=== PATIENT | female | born 1955 | race Caucasian/White ===

== ENCOUNTER 2023-04-13 21:26 | Inpatient (IN) | payer MEDICARE, OTHER ==
[~2023-04-13] VITALS: Ht 170.2 cm; Wt 81.7 kg
[2023-04-13] MEDS ORDERED: MORPHINE SULFATE 4 MG/ML CPJ (NOT FOR IM USE) IV STA (22:38)
[2023-04-13] MEDS ORDERED: PANTOPRAZOLE SODIUM 40 MG/VIAL IV STA (22:38)
[2023-04-13] MEDS ORDERED: ONDANSETRON HCL 4MG/2ML INJ IV STA (22:38)
[2023-04-13] MEDS ORDERED: SODIUM CHLORIDE 0.9% 1,000 ML IV ONE (22:45)
[2023-04-13 22:52] LABS: BASOPHILS % 0.7 % (0.0-2.0); EOSINOPHILS % 3.1 % (0.0-5.0); HEMATOCRIT. 28.2 % (36.0-48.0); HEMOGLOBIN. 9.6 g/dL (12.0-16.0); LYMPHOCYTES % 24.2 % (20.0-50.0); MEAN CORPUSCULAR HEMOGLOBIN 32.9 pg (28.0-32.0); MEAN CORPUSCULAR VOLUME 96.6 fL (81.0-99.0); MEAN PLATELET VOLUME 9.2 fl (7.4-10.4); MONOCYTES % 8.9 % (2.0-8.0); NEUTROPHILS % 63.1 % (40.0-76.0); PLATELET 86 x1000/uL (130-400); RED BLOOD CELL COUNT 2.92 mill/uL (4.2-5.4); RED CELL DISTRIBUTION WIDTH 17.9 % (11.6-14.6)
[2023-04-13 23:00] LABS: CHLORIDE 108 mEq/L (98-107)
[2023-04-13 23:04] LABS: INR 1.4; PROTHROMBIN TIME 14.4 sec (9.6-11.0)
[2023-04-14] MEDS ORDERED: NA PHOS,M-B/NA PHOS,DI-BA ENEMA 118ML PR PRN (02:45)
[2023-04-14] MEDS ORDERED: IPRATROPIUM/ALBUTEROL 0.5-3(2.5)MG/3ML NEB HHN PRN (02:45)
[2023-04-14] MEDS ORDERED: MORPHINE SULFATE 2 MG/ML CPJ (NOT FOR IM USE) IV PRN (02:45)
[2023-04-14] MEDS ORDERED: MAGNESIUM/ALUMINUM HYDROXIDE/SIMETHICONE 30ML UDC PO PRN (02:45)
[2023-04-14] MEDS ORDERED: ACETAMINOPHEN 325MG TABLET PO PRN ×2 (02:45)
[2023-04-14] MEDS ORDERED: CLONIDINE 0.1MG TABLET PO PRN (02:45)
[2023-04-14] MEDS ORDERED: HYDROCODONE/ACETAMINOPHEN 5/325MG TABLET PO PRN (02:45)
[2023-04-14] MEDS ORDERED: ONDANSETRON HCL 4MG/2ML INJ IV PRN (02:45)
[2023-04-14 02:54] LABS: CLARITY URINE CLEAR (CLEAR); COLOR URINE DARK YELLOW (YELLOW); KETONES URINE NEGATIVE (NEGATIVE); LEUKOCYTE ESTERASE URINE NEGATIVE (NEGATIVE); NITRITE URINE NEGATIVE (NEGATIVE); OCCULT BLOOD URINE NEGATIVE (NEGATIVE); PROTEIN URINE NEGATIVE (NEGATIVE); SPECIFIC GRAVITY URINE 1.025 (1.005-1.030)
[2023-04-14 04:51] LABS: BASOPHILS % 0.2 % (0.0-2.0); EOSINOPHILS % 0.1 % (0.0-5.0); HEMATOCRIT. 30.4 % (36.0-48.0); HEMOGLOBIN. 10.4 g/dL (12.0-16.0); LYMPHOCYTES % 15.9 % (20.0-50.0); MEAN CORPUSCULAR HEMOGLOBIN 33.2 pg (28.0-32.0); MEAN CORPUSCULAR VOLUME 96.7 fL (81.0-99.0); MEAN PLATELET VOLUME 8.5 fl (7.4-10.4); MONOCYTES % 3.4 % (2.0-8.0); NEUTROPHILS % 80.4 % (40.0-76.0); PLATELET 75 x1000/uL (130-400); RED BLOOD CELL COUNT 3.14 mill/uL (4.2-5.4); RED CELL DISTRIBUTION WIDTH 17.5 % (11.6-14.6)
[2023-04-14 05:00] LABS: CHLORIDE 109 mEq/L (98-107)
[2023-04-14 05:12] LABS: PARTIAL THROMBOPLASTIN TIME 34.5 sec (23.4-31.0)
[2023-04-14 05:17] LABS: HDL CHOLESTEROL 26 mg/dL (40-59); LDL CHOLESTEROL 53 mg/dL (5-100); T4 FREE 1.17 ng/dL (0.76-1.46); TOTAL IRON BINDING CAPACITY 207 ug/dL (250-450)
[2023-04-14] MEDS ORDERED: IOHEXOL-300 100 ML BOTTLE ONE (05:48)
[2023-04-14 07:48] LABS: HAPTOGLOBIN 23 mg/dL (30-200)
[2023-04-14 07:58] LABS: BG CARBOXYHEMOGLOBIN 0.4 % (0.5-1.5); BG DEOXYHEMOGLOBIN 1.6 % (0.0-5.0); BG HCO3 ACT 17.8 mmol/L (22.0-26.0); BG METHEMOGLOBIN 0.2 % (0.0-1.5); BG OXYGEN SATURATION 98.4 % (92.0-98.5); BG OXYHEMOGLOBIN 97.8 % (94.0-97.0); BG PCO2 33.5 mmHg (35.0-45.0); BG PH 7.344 (7.350-7.450); BG PO2 124.5 mmHg (75.0-100.0); BG SAMPLE SITE RIGHT BRACHIAL; BG TOTAL HEMOGLOBIN 10.3 g/dL (12.0-18.0); BG VENT MODE NASAL CANNULA
[2023-04-14 09:00] VITALS: BP_SYST 113; BP_SYST 114; BP_DIAS 50; BP_DIAS 53; PULSE 53; PULSE 64; RESP 11; RESP 20; TEMP 96.4; TEMP 97.7
[2023-04-14 09:17] LABS: HEPATITIS B SURFACE AB < 3.1 mIU/mL
[2023-04-14] MEDS ORDERED: PANT40TA51 MT (10:00)
[2023-04-14] MEDS ORDERED: NADO20TA33 MT (10:00)
[2023-04-14] MEDS ORDERED: FURO40TA5 MT (10:00)
[2023-04-14] MEDS ORDERED: SPIR50TA5 MT (10:00)
[2023-04-14] MEDS ORDERED: FOLI-43 MT (10:00)
[2023-04-14] MEDS ORDERED: *PATIENT'S OWN MEDICATION STORAGE XX SCH (10:45)
[2023-04-14] MEDS: PANTOPRAZOLE SODIUM 40 MG/VIAL IV SCH (11:50)
[2023-04-14 12:00] VITALS: BP 113/50; PULSE 52; RESP 20; TEMP 96.4
[2023-04-14 14:29] LABS: *AMPHETAMINES SCREEN URINE NEGATIVE (NEGATIVE); *BARBITURATES SCREEN URINE NEGATIVE (NEGATIVE); *BENZODIAZEPINES SCREEN URINE NEGATIVE (NEGATIVE); *COCAINE SCREEN URINE NEGATIVE (NEGATIVE); CANNABINOID URINE SCREEN NEGATIVE (NEGATIVE); METHADONE URINE SCREEN NEGATIVE (NEGATIVE); OPIATES URINE SCREEN PRESUMTIVE POSITIVE (NEGATIVE); PHENCYCLIDINE URINE SCREEN NEGATIVE (NEGATIVE)
[2023-04-14 16:00] VITALS: BP 102/53; PULSE 60; RESP 20; TEMP 97.7
[2023-04-14] MEDS ORDERED: NALOXONE HCL 0.4MG/ML VIAL IV PRN (17:30)
[2023-04-14] MEDS: PHYTONADIONE 10MG/ML AMP SUBCUT SCH (18:14)
[2023-04-14 20:00] VITALS: BP 105/49; PULSE 59; RESP 17; TEMP 97.5
[2023-04-14] MEDS: CARVEDILOL 3.125 MG TABLET PO SCH (20:05)
[2023-04-15] VITALS: BP 101/49; PULSE 63; RESP 18; TEMP 97.7
[2023-04-15 04:00] VITALS: BP 109/49; PULSE 75; RESP 20; TEMP 97.8
[2023-04-15 08:00] VITALS: PULSE 66; RESP 20; TEMP 97.9
[2023-04-15 08:29] LABS: HEMATOCRIT 26.1 % (36.0-48.0); HEMOGLOBIN 9.2 g/dL (12.0-16.0); MEAN CORPUSCULAR HEMOGLOBIN 33.9 pg (28.0-32.0); PLATELET 81 x1000/uL (130-400); RED BLOOD CELL COUNT 2.72 mill/uL (4.2-5.4); RED CELL DISTRIBUTION WIDTH 18.2 % (11.6-14.6)
[2023-04-15 08:32] LABS: CHLORIDE 111 mEq/L (98-107)
[2023-04-15] MEDS: CARVEDILOL 3.125 MG TABLET PO SCH ×2 (11:48→21:32)
[2023-04-15] MEDS: PHYTONADIONE 10MG/ML AMP SUBCUT SCH (11:52)
[2023-04-15] MEDS: PANTOPRAZOLE SODIUM 40 MG/VIAL IV SCH (11:53)
[2023-04-15 12:00] VITALS: PULSE 71; RESP 18; TEMP 98.8
[2023-04-15] MEDS: LACTULOSE 20G/30ML UDC PO SCH ×2 (15:53→21:32)
[2023-04-15 16:00] VITALS: PULSE 64; RESP 18; TEMP 97.9
[2023-04-15 20:00] VITALS: BP 120/46; PULSE 63; RESP 18; TEMP 97.8
[2023-04-15] MEDS: RIFAXIMIN 550 MG TABLET PO SCH (21:32)
[2023-04-16] VITALS: PULSE 80; RESP 20; TEMP 97.9
[2023-04-16 04:00] VITALS: BP 109/63; PULSE 66; RESP 20; TEMP 97.7
[2023-04-16] MEDS: LACTULOSE 20G/30ML UDC PO SCH (06:17)
[2023-04-16 08:00] VITALS: BP 103/43; PULSE 63; RESP 18; TEMP 97.5
[2023-04-16 08:35] LABS: INR 1.5; PROTHROMBIN TIME 15.6 sec (9.6-11.0)
[2023-04-16 08:45] LABS: CHLORIDE 115 mEq/L (98-107)
[2023-04-16 08:46] LABS: BASOPHILS % 0.8 % (0.0-2.0); EOSINOPHILS % 4.4 % (0.0-5.0); HEMATOCRIT. 24.2 % (36.0-48.0); HEMOGLOBIN. 8.4 g/dL (12.0-16.0); LYMPHOCYTES % 35.5 % (20.0-50.0); MEAN CORPUSCULAR HEMOGLOBIN 33.3 pg (28.0-32.0); MEAN CORPUSCULAR VOLUME 96.4 fL (81.0-99.0); MEAN PLATELET VOLUME 9.3 fl (7.4-10.4); MONOCYTES % 9.9 % (2.0-8.0); NEUTROPHILS % 49.4 % (40.0-76.0); PLATELET 60 x1000/uL (130-400); RED BLOOD CELL COUNT 2.51 mill/uL (4.2-5.4); RED CELL DISTRIBUTION WIDTH 18.5 % (11.6-14.6)
[2023-04-16] MEDS: CARVEDILOL 3.125 MG TABLET PO SCH (10:55)
[2023-04-16] MEDS: PHYTONADIONE 10MG/ML AMP SUBCUT SCH (10:55)
[2023-04-16] MEDS: RIFAXIMIN 550 MG TABLET PO SCH (10:55)
[2023-04-16] MEDS: PANTOPRAZOLE SODIUM 40 MG/VIAL IV SCH (10:55)
[2023-04-16] MEDS ORDERED: COR3 PO (11:56)
[2023-04-16 12:22] VITALS: BP 103/43; PULSE 63; TEMP 97.5; O2SAT 97
== END 2023-04-16 14:31 | disposition home or self-care (01) | DRG 444 ==
LOC: ER 22:14 → 6EST 04-14 03:17 → EDBEDREQSVC 04-14 03:21 → EDBEDREQTM 04-14 03:21 → EDBEDREQ 04-14 03:21 → ER 04-14 08:49
PROVIDERS: ADMIT Hospitalist; ATTEND Hospitalist
DX: K80.60 Calculus of gallbladder and bile duct with cholecystitis, unspecified, without obstruction (principal); E43 Unspecified severe protein-calorie malnutrition; E87.1 Hypo-osmolality and hyponatremia; R18.8 Other ascites; K76.6 Portal hypertension; D68.9 Coagulation defect, unspecified; D64.9 Anemia, unspecified; K74.60 Unspecified cirrhosis of liver; D69.6 Thrombocytopenia, unspecified; R74.01 Elevation of levels of liver transaminase levels; I10 Essential (primary) hypertension; I86.4 Gastric varices; F10.10 Alcohol abuse, uncomplicated; Z68.29 Body mass index [BMI] 29.0-29.9, adult; Z79.899 Other long term (current) drug therapy
CPT/HCPCS: 36415; 36600; 71045; 74177; 74181; 76700; 80048; 80053; 80061; 80076; 80305; 81003; 82140; 82248; 82375; 82570; 82728; 82805; 82962; 83010; 83036; 83540; 83550; 83605; 83615; 83880; 83930; 83935; 84145; 84300; 84439; 84443; 85025; 85027; 85044; 85384; 86705; 86706; 86803; 93306; 97162; 99291; C9113; J2270; J2405; J3430; J7030; Q9967

== ENCOUNTER 2023-04-27 10:44 | Inpatient (IN) | payer MEDICARE, OTHER ==
[~2023-04-27] VITALS: Ht 154.9 cm; Wt 84.0 kg
[~2023-04-27 10:44] MED LIST: COR3 PO; FOLI-43 MT; FURO40TA5 MT; PANT40TA51 MT; SPIR50TA5 MT
[2023-04-27 11:04] LABS: BASOPHILS % 0.9 % (0.0-2.0); HEMATOCRIT. 31.3 % (36.0-48.0); HEMOGLOBIN. 10.7 g/dL (12.0-16.0); LYMPHOCYTES % 30.9 % (20.0-50.0); MEAN CORPUSCULAR HEMOGLOBIN 33.5 pg (28.0-32.0); MEAN CORPUSCULAR HGB CONC 34.1 g/dL (31.0-37.0); MEAN CORPUSCULAR VOLUME 98.1 fL (81.0-99.0); MONOCYTES % 7.7 % (2.0-8.0); NEUTROPHILS % 57.5 % (40.0-76.0); RED CELL DISTRIBUTION WIDTH 20.2 % (11.6-14.6); WHITE BLOOD COUNT 4.1 x1000/uL (4.5-11.0)
[2023-04-27 11:10] LABS: CHLORIDE 114 mEq/L (98-107); INDEX HEMOLYSI 1 (1-3); INDEX ICTERIC 3 (1-4); INDEX LIPEMIC 1 (1-3); SODIUM 141 mEq/L (136-145)
[2023-04-27 11:11] LABS: INDEX HEMOLYSI 1 (1-3)
[2023-04-27 11:19] LABS: ALANINE AMINOTRANSFERASE 31 IU/L (13-61); ALBUMIN 2.5 g/dL (3.4-5.0); ASPARTATE AMINOTRANSFERASE 59 IU/L (15-37); BILIRUBIN TOTAL 4.7 mg/dL (0.1-1.0); CALCIUM 8.8 mg/dL (8.5-10.1); CARBON DIOXIDE 20 mEq/L (21-32); CREATININE 1.3 mg/dL (0.6-1.3); ETHANOL BLOOD < 10 mg/dL (-10); GLUCOSE 118 mg/dL (70-105); PROTEIN TOTAL 7.6 g/dL (6.0-8.3); TROPONIN I HIGH SENSITIVITY 18 ng/L (<54); UREA NITROGEN BLOOD 23 mg/dL (7-21)
[2023-04-27 11:31] LABS: DIFFERENTIAL COMMENT 1
[2023-04-27 12:24] LABS: AMMONIA 149 uMol/L (<32)
[2023-04-27] MEDS ORDERED: LACTULOSE 20G/30ML UDC PO ONE (12:30)
[2023-04-27 12:32] LABS: PLATELET 93 x1000/uL (130-400)
[2023-04-27 13:18] LABS: CLARITY URINE CLEAR (CLEAR); COLOR URINE YELLOW (YELLOW); GLUCOSE URINE NEGATIVE (NEGATIVE); KETONES URINE NEGATIVE (NEGATIVE); LEUKOCYTE ESTERASE URINE 1+ (NEGATIVE); NITRITE URINE NEGATIVE (NEGATIVE); OCCULT BLOOD URINE NEGATIVE (NEGATIVE); PROTEIN URINE NEGATIVE (NEGATIVE); SPECIFIC GRAVITY URINE 1.009 (1.005-1.030)
[2023-04-27 14:25] LABS: *AMPHETAMINES SCREEN URINE NEGATIVE (NEGATIVE); *BARBITURATES SCREEN URINE NEGATIVE (NEGATIVE); *BENZODIAZEPINES SCREEN URINE NEGATIVE (NEGATIVE); *COCAINE SCREEN URINE NEGATIVE (NEGATIVE); CANNABINOID URINE SCREEN NEGATIVE (NEGATIVE); ECSTASY MDMA SCREEN URINE NEGATIVE (NEGATIVE); METHADONE URINE SCREEN NEGATIVE (NEGATIVE); OPIATES URINE SCREEN NEGATIVE (NEGATIVE); PHENCYCLIDINE URINE SCREEN NEGATIVE (NEGATIVE)
[2023-04-27 14:37] VITALS: BP 146/71; PULSE 80; RESP 20; TEMP 98
[2023-04-27 14:49] VITALS: BP 146/71; PULSE 80; RESP 20; TEMP 98
[2023-04-27] MEDS ORDERED: LACT10SO7 PO (14:56)
[2023-04-27] MEDS ORDERED: NITROGLYCERIN 0.4MG TABLET SL SL PRN (15:15)
[2023-04-27] MEDS ORDERED: KETOROLAC 15MG/ML VIAL IV PRN (15:15)
[2023-04-27] MEDS ORDERED: HALOPERIDOL LACTATE 5MG/ML VIAL IM NR (15:30)
[2023-04-27] MEDS ORDERED: GUAIFENESIN 200MG/10ML SUGAR FREE UDC PO PRN (15:30)
[2023-04-27] MEDS ORDERED: ONDANSETRON HCL 4MG/2ML INJ IV PRN (15:30)
[2023-04-27] MEDS ORDERED: IPRATROPIUM/ALBUTEROL 0.5-3(2.5)MG/3ML NEB NEB PRN (15:30)
[2023-04-27] MEDS ORDERED: ACETAMINOPHEN 325MG TABLET PO PRN (15:30)
[2023-04-27] MEDS ORDERED: CLONIDINE 0.1MG TABLET PO PRN (15:30)
[2023-04-27] MEDS ORDERED: MAGNESIUM/ALUMINUM HYDROXIDE/SIMETHICONE 30ML UDC PO PRN (15:30)
[2023-04-27] MEDS ORDERED: DOCUSATE SODIUM 100MG CAPSULE PO PRN (15:30)
[2023-04-27 15:31] LABS: BACTERIA URINE NONE SEEN; RBC URINE NONE SEEN /hpf (0-2); SQUAMOUS EPITHELIAL CELL URINE FEW /lpf (RARE/1+); WBC URINE 0-2 /hpf (0-2); YEAST URINE NONE SEEN
[2023-04-27] MEDS: PANTOPRAZOLE SODIUM 40 MG/VIAL IV SCH (16:09)
[2023-04-27] MEDS: LACTULOSE 20G/30ML UDC PO SCH ×3 (16:09→23:51)
[2023-04-27 16:19] VITALS: BP 132/78; PULSE 82; RESP 15; TEMP 98.3
[2023-04-27] MEDS: SODIUM CHLORIDE 0.9% 1,000 ML IV SCH (16:29)
[2023-04-27] MEDS ORDERED: ENOXAPARIN 30MG/0.3ML SYR SUBCUT SCH (16:30)
[2023-04-27 19:28] LABS: INDEX HEMOLYSI 2 (1-3)
[2023-04-27 19:37] LABS: T4 FREE 1.46 ng/dL (0.76-1.46); THYROID STIMULATING HORMONE 2.5 uIU/mL (0.36-3.74)
[2023-04-27 20:00] VITALS: BP 111/46; PULSE 64; RESP 17; TEMP 96.9
[2023-04-27 20:01] LABS: FOLIC ACID (FOLATE) SERUM >20 ng/mL ng/mL (>5.38); VITAMIN B12 SERUM 1945 pg/mL (211-911)
[2023-04-27 20:17] LABS: SODIUM URINE RANDOM 75 mEq/L
[2023-04-27 20:45] LABS: LACTIC ACID 2.5 mmol/L (0.4-2.0)
[2023-04-27] MEDS: RIFAXIMIN 550 MG TABLET PO SCH (20:48)
[2023-04-27 21:20] LABS: OSMOLALITY URINE 461 mOsm/kg (500-850)
[2023-04-28] VITALS: BP 124/59; PULSE 74; RESP 19; TEMP 97.8
[2023-04-28] MEDS: ACETAMINOPHEN 325MG TABLET PO PRN (00:30)
[2023-04-28] MEDS: SODIUM CHLORIDE 0.9% 1,000 ML IV SCH ×3 (01:47→21:22)
[2023-04-28] MEDS: LACTULOSE 20G/30ML UDC PO SCH ×5 (03:52→20:30)
[2023-04-28 04:00] VITALS: BP 118/62; PULSE 71; RESP 15; TEMP 98
[2023-04-28 06:05] LABS: BASOPHILS % 0.6 % (0.0-2.0); HEMATOCRIT. 28.6 % (36.0-48.0); HEMOGLOBIN. 9.7 g/dL (12.0-16.0); LYMPHOCYTES % 30.7 % (20.0-50.0); MEAN CORPUSCULAR HEMOGLOBIN 33.8 pg (28.0-32.0); MEAN CORPUSCULAR VOLUME 99.4 fL (81.0-99.0); MEAN PLATELET VOLUME 9.7 fl (7.4-10.4); MONOCYTES % 10.8 % (2.0-8.0); NEUTROPHILS % 54.9 % (40.0-76.0); PLATELET 81 x1000/uL (130-400); RED BLOOD CELL COUNT 2.88 mill/uL (4.2-5.4); RED CELL DISTRIBUTION WIDTH 21.5 % (11.6-14.6); WHITE BLOOD COUNT 4.8 x1000/uL (4.5-11.0)
[2023-04-28 07:01] LABS: CHLORIDE 119 mEq/L (98-107); INDEX HEMOLYSI 1 (1-3); INDEX ICTERIC 3 (1-4); INDEX LIPEMIC 1 (1-3); POTASSIUM 4.1 mEq/L (3.5-5.1); SODIUM 146 mEq/L (136-145)
[2023-04-28 07:11] LABS: ALANINE AMINOTRANSFERASE 28 IU/L (13-61); ALBUMIN 2.2 g/dL (3.4-5.0); ASPARTATE AMINOTRANSFERASE 54 IU/L (15-37); BILIRUBIN TOTAL 5.3 mg/dL (0.1-1.0); CALCIUM 9.3 mg/dL (8.5-10.1); CARBON DIOXIDE 20 mEq/L (21-32); CREATININE 1.1 mg/dL (0.6-1.3); GLUCOSE 116 mg/dL (70-105); PHOSPHORUS 2.9 mg/dL (2.5-4.9); PROTEIN TOTAL 6.6 g/dL (6.0-8.3); UREA NITROGEN BLOOD 19 mg/dL (7-21)
[2023-04-28 08:00] VITALS: BP 97/45; PULSE 71; RESP 14; TEMP 97.1
[2023-04-28] MEDS ORDERED: PANTOPRAZOLE SODIUM 40 MG/VIAL IV SCH (09:00)
[2023-04-28] MEDS: PANTOPRAZOLE SODIUM 40 MG/VIAL IV SCH (09:53)
[2023-04-28] MEDS: RIFAXIMIN 550 MG TABLET PO SCH ×2 (09:53→20:30)
[2023-04-28] MEDS: AMLODIPINE 5MG TABLET PO SCH (09:54)
[2023-04-28 12:00] VITALS: BP 95/55; PULSE 77; RESP 17; TEMP 98
[2023-04-28 16:00] VITALS: BP 122/53; PULSE 72; RESP 15; TEMP 98
[2023-04-28 20:00] VITALS: BP 128/49; PULSE 72; RESP 17; TEMP 98.4
[2023-04-28 22:01] LABS: AMMONIA 45 uMol/L (<32)
[2023-04-29] VITALS: BP 124/63; PULSE 82; RESP 14; TEMP 99.1
[2023-04-29] MEDS: LACTULOSE 20G/30ML UDC PO SCH ×5 (01:22→20:40)
[2023-04-29 04:00] VITALS: BP 116/59; PULSE 74; RESP 15; TEMP 98.2
[2023-04-29 08:00] VITALS: BP 113/64; PULSE 76; RESP 18; TEMP 97.4
[2023-04-29] MEDS: AMLODIPINE 5MG TABLET PO SCH (08:49)
[2023-04-29] MEDS: PANTOPRAZOLE SODIUM 40 MG/VIAL IV SCH (08:50)
[2023-04-29] MEDS: SODIUM CHLORIDE 0.9% 1,000 ML IV SCH (08:50)
[2023-04-29] MEDS: RIFAXIMIN 550 MG TABLET PO SCH ×2 (08:50→20:40)
[2023-04-29 09:58] LABS: AMMONIA 55 uMol/L (<32)
[2023-04-29 10:00] LABS: HEMATOCRIT 31.3 % (36.0-48.0); MEAN CORPUSCULAR HEMOGLOBIN 33.1 pg (28.0-32.0); MEAN CORPUSCULAR HGB CONC 32.1 g/dL (31.0-37.0); MEAN CORPUSCULAR VOLUME 103.2 fL (81.0-99.0); PLATELET 78 x1000/uL (130-400); RED BLOOD CELL COUNT 3.03 mill/uL (4.2-5.4); WHITE BLOOD COUNT 5.5 x1000/uL (4.5-11.0)
[2023-04-29 10:03] LABS: CHLORIDE 114 mEq/L (98-107); INDEX HEMOLYSI 1 (1-3); INDEX ICTERIC 3 (1-4); INDEX LIPEMIC 1 (1-3); POTASSIUM 4.4 mEq/L (3.5-5.1); SODIUM 138 mEq/L (136-145)
[2023-04-29 10:04] LABS: CALCIUM 9.1 mg/dL (8.5-10.1)
[2023-04-29 10:09] LABS: CARBON DIOXIDE 16 mEq/L (21-32); CREATININE 0.8 mg/dL (0.6-1.3); GLUCOSE 173 mg/dL (70-105); PHOSPHORUS 2.5 mg/dL (2.5-4.9); UREA NITROGEN BLOOD 20 mg/dL (7-21)
[2023-04-29 12:00] VITALS: BP 110/45; PULSE 79; RESP 20; TEMP 98
[2023-04-29 16:00] VITALS: BP 110/60; PULSE 77; RESP 20; TEMP 97.8
[2023-04-29 20:00] VITALS: BP 103/47; PULSE 77; RESP 18; TEMP 99.5
[2023-04-30] VITALS: BP 103/58; PULSE 84; RESP 16; TEMP 99
[2023-04-30] MEDS: LACTULOSE 20G/30ML UDC PO SCH ×5 (03:30→20:49)
[2023-04-30 04:00] VITALS: BP 101/53; PULSE 67; RESP 16; TEMP 97.9
[2023-04-30 06:17] LABS: HEMATOCRIT 27.1 % (36.0-48.0); HEMOGLOBIN 9.2 g/dL (12.0-16.0); MEAN CORPUSCULAR HEMOGLOBIN 33.5 pg (28.0-32.0); MEAN CORPUSCULAR HGB CONC 33.7 g/dL (31.0-37.0); MEAN CORPUSCULAR VOLUME 99.3 fL (81.0-99.0); PLATELET 64 x1000/uL (130-400); RED BLOOD CELL COUNT 2.73 mill/uL (4.2-5.4); RED CELL DISTRIBUTION WIDTH 20.8 % (11.6-14.6); WHITE BLOOD COUNT 5.6 x1000/uL (4.5-11.0)
[2023-04-30 06:18] LABS: ALANINE AMINOTRANSFERASE 39 IU/L (13-61); ALBUMIN 2.1 g/dL (3.4-5.0); ASPARTATE AMINOTRANSFERASE 85 IU/L (15-37); BILIRUBIN TOTAL 4.2 mg/dL (0.1-1.0); CALCIUM 8.4 mg/dL (8.5-10.1); CARBON DIOXIDE 17 mEq/L (21-32); CHLORIDE 114 mEq/L (98-107); CREATININE 0.8 mg/dL (0.6-1.3); GLUCOSE 95 mg/dL (70-105); INDEX HEMOLYSI 1 (1-3); INDEX ICTERIC 2 (1-4); INDEX LIPEMIC 1 (1-3); IRON 177 ug/dL (50-175); PHOSPHORUS 2.7 mg/dL (2.5-4.9); POTASSIUM 4.7 mEq/L (3.5-5.1); PROTEIN TOTAL 6.4 g/dL (6.0-8.3); SODIUM 139 mEq/L (136-145); TOTAL IRON BINDING CAPACITY 225 ug/dL (250-450); UREA NITROGEN BLOOD 16 mg/dL (7-21)
[2023-04-30 06:39] LABS: AMMONIA 71 uMol/L (<32)
[2023-04-30 06:53] LABS: INDEX HEMOLYSI 1 (1-3)
[2023-04-30] MEDS ORDERED: SODIUM PHOS,M-BASIC-D-BASIC 20 MM in DEXT 5% WATER 243.3333 ML IV ONE (07:45)
[2023-04-30 08:00] VITALS: BP 107/67; PULSE 76; RESP 18; TEMP 98.1
[2023-04-30] MEDS: RIFAXIMIN 550 MG TABLET PO SCH ×2 (08:51→20:49)
[2023-04-30] MEDS: AMLODIPINE 5MG TABLET PO SCH (08:52)
[2023-04-30] MEDS: PANTOPRAZOLE SODIUM 40 MG/VIAL IV SCH (08:52)
[2023-04-30] MEDS ORDERED: MAGNESIUM 1 G PREMIX 100 ML IV NR (09:00)
[2023-04-30 12:00] VITALS: BP 90/45; PULSE 66; RESP 17; TEMP 98.2
[2023-04-30 16:00] VITALS: BP 95/52; PULSE 63; RESP 18; TEMP 98.3
[2023-04-30 20:00] VITALS: BP 96/49; PULSE 65; RESP 19; TEMP 97.8
[2023-05-01] VITALS: BP 108/47; PULSE 64; RESP 15; TEMP 98.5
[2023-05-01] MEDS: LACTULOSE 20G/30ML UDC PO SCH ×5 (00:35→16:00)
[2023-05-01 04:00] VITALS: BP 99/56; PULSE 69; RESP 15; TEMP 98.4
[2023-05-01] MEDS: ACETAMINOPHEN 325MG TABLET PO PRN (04:36)
[2023-05-01 08:00] VITALS: BP 108/56; PULSE 74; RESP 16; TEMP 97.6
[2023-05-01] MEDS: RIFAXIMIN 550 MG TABLET PO SCH (09:29)
[2023-05-01] MEDS: PANTOPRAZOLE SODIUM 40 MG/VIAL IV SCH (09:29)
[2023-05-01] MEDS: AMLODIPINE 5MG TABLET PO SCH (09:29)
[2023-05-01] MEDS ORDERED: LACT10SO7 PO (10:12)
[2023-05-01] MEDS ORDERED: RIFA550T PO (10:12)
[2023-05-01 12:00] VITALS: BP 128/62; PULSE 67; RESP 20; TEMP 97.4
[2023-05-01 15:56] VITALS: BP 103/67; PULSE 64; TEMP 97.4; O2SAT 96
[2023-05-01 16:00] VITALS: BP 103/47; PULSE 67; RESP 17; TEMP 97.4
== END 2023-05-01 16:50 | disposition home health service (06) | DRG 441 ==
LOC: ER 10:54 → 3WST 12:38 → EDBEDREQTM 12:40 → EDBEDREQ 12:40
PROVIDERS: ADMIT Internal Medicine; ATTEND Internal Medicine
DX: K76.82 Hepatic encephalopathy (principal); E43 Unspecified severe protein-calorie malnutrition; G93.41 Metabolic encephalopathy; N17.9 Acute kidney failure, unspecified; N39.0 Urinary tract infection, site not specified; K74.60 Unspecified cirrhosis of liver; D69.59 Other secondary thrombocytopenia; R26.81 Unsteadiness on feet; D72.819 Decreased white blood cell count, unspecified; I10 Essential (primary) hypertension; K72.90 Hepatic failure, unspecified without coma; D53.9 Nutritional anemia, unspecified; R73.9 Hyperglycemia, unspecified; Z79.899 Other long term (current) drug therapy; Z68.35 Body mass index [BMI] 35.0-35.9, adult
CPT/HCPCS: 36415; 71045; 76770; 80048; 80053; 80305; 80320; 81003; 82140; 82607; 82728; 82746; 83036; 83540; 83550; 83605; 83735; 83935; 84100; 84145; 84300; 84439; 84443; 84484; 85025; 85027; 93970; 97162; 97165; 99285; C9113; J1630; J3475; J7030; G0480